=== PATIENT | female | born 1970 | race Two or more races ===

== ENCOUNTER 2017-03-02 18:27 | Emergency (ER) | payer BC, OTHER ==
[~2017-03-02] VITALS: Ht 167.6 cm; Wt 70.1 kg
[~2017-03-02 18:27] MED LIST: SUDAFED; VIC
[2017-03-02 18:53] VITALS: Ht 167.6 cm; Wt 70.1 kg
[2017-03-02 21:08] LABS: BASOPHILS % 0.3 % (0.0-2.0); EOSINOPHILS # 0.1 10^3/ul (0.0-0.5); EOSINOPHILS % 0.7 % (0.0-7.0); HEMATOCRIT 43.2 % (37.0-47.0); HEMOGLOBIN 14.3 g/dl (12.0-16.0); LYMPHOCYTES # 2.2 10^3/ul (0.8-2.9); LYMPHOCYTES % 31.3 % (15.0-51.0); MEAN CORPUSCULAR HEMOGLOBIN 29.3 pg (29.0-33.0); MEAN CORPUSCULAR HGB CONC 33.1 g/dl (32.0-37.0); MEAN CORPUSCULAR VOLUME 88.5 fl (82.0-101.0); MEAN PLATELET VOLUME 9.7 fl (7.4-10.4); MONOCYTE # 0.6 10^3/ul (0.3-0.9); MONOCYTES % 8.3 % (0.0-11.0); NEUTROPHIL # 4.1 10^3/ul (1.6-7.5); PLATELET COUNT 272 10^3/UL (140-415); RED BLOOD COUNT 4.88 10^6/ul (4.20-5.40); RED CELL DISTRIBUTION WIDTH 12.4 % (11.5-14.5); WHITE BLOOD COUNT 6.9 10^3/ul (4.8-10.8)
[2017-03-02 21:28] LABS: INR 0.89; PROTIME 12.1 Sec (11.9-14.9); PT RATIO 0.9
[2017-03-02 21:33] LABS: CALCIUM 9.4 mg/dl (8.4-10.2); CREATININE 0.65 mg/dl (0.44-1.00); POTASSIUM 4.4 mmol/L (3.5-5.1)
[2017-03-02] MEDS ORDERED: ALP2OP10 BOTH EYES (22:04)
[2017-03-02] MEDS ORDERED: COMBIG5 BOTH EYES (22:05)
[2017-03-02] MEDS ORDERED: ATOR40TA68 PO (22:06)
[2017-03-02] MEDS ORDERED: BIMA2.5D BOTH EYES (22:06)
--- NOTE | 2017-03-02 22:07 | ERD ---
ER Documentation Chief Complaint Chief Complaint right eye pain today, hx glaucoma HPI 46-year-old woman referred here by her operations/dispatch Dr. Choudhury increasing vision loss in OD. Visual acuity today was 20/200 OD, OS 20/40 just last month vision was about the same in both eyes. Furthermore today's intraocular pressure was 50 OD, 30 OS. Her operations/dispatch has been trying to obtain health insurance authorization for glaucoma valve placement, but has been unsuccessful and told her that she will lose her vision unless she undergo this procedure. Patient has been optimized with multiple medications including acetazolamide, brimonidine, atenolol, and bimatropost ophthalmic solution. She has been using these medications as prescribed by her symptoms have been increasing, it seems she also has a history of OD vitreous hemorrhage. She was documented to also have macular edema OD today. She denies headache, no fevers or chills, no chest pain or shortness of breath. ROS All systems reviewed and are negative except as per history of present illness. Medications Home Meds Reported Medications Baclofen* (Baclofen*) 10 Mg Tablet, 10 MG PO BID, TAB 03/02/17 Ibuprofen* (Ibuprofen*) 800 Mg Tab, 800 MG PO Q8H Y for PAIN, TAB 03/02/17 Atorvastatin* (Atorvastatin*) 40 Mg Tablet, 40 MG PO QHS, #30 TAB 03/02/17 Bimatoprost* (Lumigan*) 0.01%-2.5 Ml Opht Drops, 1 DROP BOTH EYES HS, EA 03/02/17 Brimonidine/Timolol* (Combigan*) 5 Ml Drops, 1 DROP BOTH EYES BID, BOTTLE 03/02/17 Brimonidine Tartrate* (Alphagan*) 0.2%-10 Ml Opht Drops, 1 DROP BOTH EYES Q8, BOTTLE 03/02/17 Discontinued Reported Medications [Sudafed] No Conflict Check 01/20/10 Acetaminophen/Hydrocodone (Vicodin) 1 Tab Tab 01/20/10 [None] No Conflict Check 07/13/09 Allergies Allergies: Coded Allergies: cephalexin (Verified Allergy, Unknown, 03/02/17) PMhx/Soc Hypertension, recent acute angle-closure glaucoma, macular edema History of Surgery: Yes (HERNIA [id number], C-SECT X2 LAST IN 2007) Anesthesia Reaction: No Hx Neurological Disorder: No Hx Respiratory Disorders: No Hx Cardiac Disorders: No Hx Psychiatric Problems: No Hx Miscellaneous Medical Probl: Yes (DIABETES) Hx Alcohol Use: No Hx Substance Use: No Hx Tobacco Use: No Smoking Status: Never smoker FmHx Family History: No diabetes Physical Exam Vitals Vital Signs Date Time Temp Pulse Resp B/P Pulse Ox O2 Delivery O2 Flow Rate FiO2 03/02/17 22:49 97.8 77 21 97/75 100 Room Air 03/02/17 22:12 71 17 109/77 100 Room Air 03/02/17 21:12 60 15 107/68 100 Room Air 03/02/17 18:53 98.1 79 20 134/63 98 Physical Exam GENERAL: Well-developed, well-nourished, well-hydrated, in no apparent distress , looks nontoxic in appearance HEENT: Moist mucous membranes, pink conjunctiva, no cervical spine tenderness or step-off deformities, no goiter, no jaundice or icterus, extraocular movements intact without pain. No submandibular induration, and no pharyngeal erythema NEURO: Alert and oriented 3, cranial nerves II through XII intact bilaterally, pupils equal round reactive to light, no focal deficits or facial asymmetry, sensation intact distally Strength 5/5 in upper and lower extremities bilaterally CARDIAC: Regular rate and rhythm, no murmurs rubs or gallops LUNGS: Clear bilaterally no wheezing crackles or stridor ABDOMEN: Soft nontender, no guarding, no rigidity, no rebound, no psoas sign no obturator sign. Normoactive bowel sounds SKIN: Warm and dry to touch, no abrasions, contusions, or hematomas, no lacerations, no ecchymosis, no target lesions, and without ulcers EXTREMITIES: No clubbing cyanosis or edema, calves are bilaterally symmetrical, no Homans sign, no popliteal cord sign. Distal pulses equal and bilateral PSYCH: Normal affect without agitation or irritability Result Diagram: 03/02/17203903/02/172039 Results 24 hrs Laboratory Tests Test 03/02/17 20:40 White Blood Count 6.910^3/ul Red Blood Count 4.8810^6/ul Hemoglobin 14.3g/dl Hematocrit 43.2% Mean Corpuscular Volume 88.5fl Mean Corpuscular Hemoglobin 29.3pg Mean Corpuscular Hemoglobin Concent 33.1g/dl Red Cell Distribution Width 12.4% Platelet Count 41450^3/UL Mean Platelet Volume 9.7fl Neutrophils % 59.0% Lymphocytes % 31.3% Monocytes % 8.3% Eosinophils % 0.7% Basophils % 0.3% Nucleated Red Blood Cells % 0.0/100WBC Neutrophils # 4.110^3/ul Lymphocytes # 2.210^3/ul Monocytes # 0.610^3/ul Eosinophils # 0.110^3/ul Basophils # 0.010^3/ul Nucleated Red Blood Cells # 0.010^3/ul Prothrombin Time 12.1Sec Prothrombin Time Ratio 0.9 INR International Normalized Ratio 0.89 Sodium Level 141mmol/L Potassium Level 4.4mmol/L Chloride Level 105mmol/L Carbon Dioxide Level 25mmol/L Anion Gap 15 Blood Urea Nitrogen 13mg/dl Creatinine 0.65mg/dl Glucose Level 95mg/dl Calcium Level 9.4mg/dl Current Medications Medications (Trade) Dose Ordered Sig/Sanchez Route PRN Reason Start Time Stop Time Status Last Admin Dose Admin Acetazolamide (Diamox) 250 mg ONCE ONCE PO 03/02/17 22:30 03/02/17 22:31 DC 03/02/17 22:12 Procedures/MDM IV line was established patient was placed on cardiac rehab nurse rhythm strip revealed a sinus rhythm at about 80 bpm with upright P and T waves. Patient was afebrile CBC and electrolytes were normal, coagulation profile revealed an INR of 0.9. I also administered Acetasol my 250 mg p.o. 1. Funduscopic/ophthalmic examinations were deferred because she had a thorough exam just prior to arrival by her operations/dispatch. I transferred her for higher level of care as we do not have operations/dispatch on staff here at [facility]. I spoke to [facility], Dr. Hawkins from ophthalmology accepted the patient. Critical Care: Time: 37 minutes, this was time separate from other billable procedures. Treatments/Evaluations: Close monitoring and treatment of unstable vital signs, cardiorespiratory, and neurologic status, while maintaining tight balance of fluid, respiratory, and cardiac interventions. Departure Diagnosis: Primary Impression: Acute angle-closure glaucoma of right eye Additional Impression: Vision loss of right eye Condition: SELINA Oliva MD Mar 02, 2017 22:07
[2017-03-02] MEDS ORDERED: IBUP800T25 PO (22:08)
[2017-03-02] MEDS ORDERED: BACL10TA PO (22:09)
[2017-03-02] MEDS ORDERED: ACETAZOLAMIDE 250 MG TAB PO ONE (22:30)
[2017-03-02 22:49] VITALS: BP 97/75; PULSE 77; RESP 21; TEMP 97.8
== END 2017-03-02 23:00 | disposition short-term general hospital (02) ==
LOC: E/R 18:27
DX: H40.211 Acute angle-closure glaucoma, right eye (principal); H54.61 Unqualified visual loss, right eye, normal vision left eye; E11.9 Type 2 diabetes mellitus without complications; I10 Essential (primary) hypertension; R07.9 Chest pain, unspecified
CPT/HCPCS: 36415; 80048; 85025; 85610; Z7502; Z7610